=== PATIENT | female | born 1950 | race Caucasian/White ===

== ENCOUNTER 2016-03-21 12:01 | Inpatient (IN) | payer OTHER ==
[~2016-03-21] VITALS: Ht 152.4 cm; Wt 38.6 kg
[~2016-03-21 12:01] MED LIST: ABILIFY10 MG; ABILIFY10 MG PO; ABILIFY2 MG PO; ABILIFY5 MG PO; ACIDOPHILUS LA1 EAC1 PO; ADDERALL XR 1010 MG PO; ADDERALL XR 2020 MG; ADDERALL10 MG PO; ADDERALL20 MG PO; ADDERALL5 MG PO; ADVAIR HFA120 INHALA IH; ALBUTEROL2.5 MG/3 M IH; ASPIR-TRIN325 M1 PO; AZITHROMYCIN500 M1 PO; Adderall PO; Amoxicillin PO; Ascorbic Acid,Ester- PO; BENTYL10 MG PO; BENTYL20 MG PO; BREO ELLIPTA I1 EACH IH; CELEXA40 MG PO; CLONAZEPAM1 MG; CLONAZEPAM1 MG PO; CLONIDINE HCL0.1 MG PO; Celexa PO; DAILY VALUE1 EACH PO; DAILY VITAMIN1 EAC8 PO; DEXAMETHASONE4 MG PO; DEXTROAMP-AMPHE10 MG PO; DOXEPIN HCL25 MG PO; DULCOLAX10 MG PR; DULCOLAX5 MG PO; DuoNeb IH; ENDOCET 5-3251 EACH PO; FIORICET WI1 CAPSULE PO; FISH OIL SOFTG1 EAC2 PO; FLORASTOR250 MG PO; FOLIC ACID1 MG PO; FOSAMAX70 MG PO; HABITROL,NICODE21 MG TD; HARVONI 90-4001 EACH PO; HYDROCODON-ACE1 EAC5 PO; HYDROCODON-ACE1 EAC9 PO; IMODIUM MS REL1 EACH PO; INDERAL10 MG PO; KAYEXALATE15 GM/60 M PO; KLONOPIN0.5 M1 PO; KLONOPIN1 MG PO; KlonoPIN PO; Klonopin PO; LEVAQUIN500 MG PO; LIBRAX, CLI1 CAPSULE PO; LOMOTIL,LONO1 TABLET PO; LOPRESSOR25 MG; LORTAB 5-325 M1 EACH PO; Levaquin PO; Lopressor PO; MAGNESIUM100 MG PO; MEDROL DOSEPAK4 MG PO; METOPROLOL SUC100 MG PO; METOPROLOL SUCC25 MG PO; MOBIC15 MG PO; MULTI VITAMIN1 EACH PO; MULTIVITAMIN1 EAC2 PO; NICOTINE PATCH1 EAC2 TD; NITROSTAT,NITR0.4 M1 SL; NORVASC5 MG PO; OMEPRAZOLE40 M1 PO; OYST-CAL D TAB1 EACH PO; Oscal 500 w/Vitamin PO; Oyst-Cal D, Oscal W/ PO; PANTOPRAZOLE SO40 MG PO; PERCOCET 10/1 TABLET PO; PERCOCET 5/31 TABLET PO; PHENERGAN; PREDNISONE; PREDNISONE5 MG PO; PREDNISONE50 MG PO; PREVACID30 MG PO; PROAIR HFA8.5 GM IH; PROBIOTIC1 EACH; PROPRANOLOL HCL10 MG; PROVENTIL HFA6.7 GM IH; SENOKOT S,PE1 TABLET PO; SPIRIVA1 INHALATI IH; STROMECTOL PO; TEMOVATE 0.05%30 GM TP; THERAGRAN1 TABLET PO; TOPROL XL50 MG PO; TYLENOL WITH C1 EACH PO; Tylenol Regular Stre PO; VITAMIN D; VITAMIN D1000 INTUN PO; VITAMIN D400 UNI2 PO; Wellbutrin SR PO; ZESTRIL20 MG PO; ZITHROMAX Z-PA250 MG PO; ZOFRAN ODT8 MG PO; [UNRECOGNIZED DRUG - OTHER] PO; celeXA PO; oxyCODONE PO; predniSONE PO
[2016-03-21] MEDS ORDERED: LISINOPRIL40 MG PO (13:00)
[2016-03-21] MEDS ORDERED: LISINOPRIL PO (13:01)
[2016-03-21 13:02] LABS: HEMATOCRIT 41.8 % (36.0-46.0); MCH 34.1 PG (29.0-34.0); MCHC 32.1 G/DL (30.0-36.0); MCV 106.4 FL (83-99); MEAN PLAT.VOLUME 9.5 uM^3 (9.5-12.4); PLATELET COUNT 258 K/uL (156-360); RBC DIS.WIDTH-CV 12.6 % (11.8-14.6); RBC DIS.WIDTH-SD 48.4 % (39-53); RED BLOOD COUNT 3.93 M/uL (3.80-5.20); WHITE BLOOD COUNT 7.9 K/uL (4.1-10.2)
[2016-03-21] MEDS ORDERED: CLONAZEPAM0.5 MG PO (13:02)
[2016-03-21 13:17] LABS: CHLORIDE 111 mEq/L (99-109); POTASSIUM 5.3 mEq/L (3.7-5.4); SODIUM 142 mEq/L (136-147)
[2016-03-21 13:18] LABS: GLUCOSE 143 mg/dL (70-99)
[2016-03-21 13:20] LABS: ANION GAP 13 MEQ/L (2-14)
[2016-03-21 13:22] LABS: GFR ESTIMATE (CALCULATED) 25 mL/min/
[2016-03-21 13:23] LABS: TROP-I INTERPRETATION NEGATIVE; TROPONIN-I 0.02 ng/mL (0.0-0.30); UREA NITROGEN (BUN) 30 mg/dL (9-23)
[2016-03-21] MEDS ORDERED: HYDROCODON-ACE1 EAC9 PO (14:03)
[2016-03-21] MEDS ORDERED: KLONOPIN1 MG PO (17:19)
[2016-03-21] MEDS ORDERED: ZESTRIL40 MG PO (17:20)
[2016-03-21] MEDS ORDERED: DOXEPIN HCL25 MG PO (17:21)
[2016-03-21] MEDS ORDERED: BIOFLEX TABLET1 EACH PO (17:24)
[2016-03-21 18:22] VITALS: BP 174/77
[2016-03-21 20:08] VITALS: BP 165/84
[2016-03-22 04:42] VITALS: BP 113/56
[2016-03-22 06:50] LABS: ANION GAP 7 MEQ/L (2-14); CHLORIDE 112 MEQ/L (99-109); GFR ESTIMATE (CALCULATED) 40 mL/min/; GLUCOSE 115 mg/dL (70-99); POTASSIUM 5.1 MEQ/L (3.7-5.4); SAMPLE HEMOLYSIS CHECK 0; SAMPLE ICTERIC CHECK 0; SAMPLE LIPEMIA CHECK 0; SODIUM 143 MEQ/L (136-147); UREA NITROGEN (BUN) 29 mg/dL (9-23)
[2016-03-22 07:59] VITALS: BP 140/64
[2016-03-22 09:26] LABS: ALKALINE PHOSPHATASE 52 IU/L (3-129); DIRECT BILIRUBIN 0.1 mg/dL (0.0-0.3); LIPASE 23 U/L (1.0-51.0); TOTAL BILIRUBIN 0.2 MG/DL (0.0-1.0)
[2016-03-22 12:25] VITALS: BP 131/62
[2016-03-22 15:36] VITALS: BP 164/74
[2016-03-22 20:28] VITALS: BP 165/74
[2016-03-23] VITALS (11 sets, daily range): BP systolic 123–193; BP diastolic 60–98
[2016-03-23 06:27] LABS: ANION GAP 7 MEQ/L (2-14); CHLORIDE 112 MEQ/L (99-109); GFR ESTIMATE (CALCULATED) 59 mL/min/; GLUCOSE 94 mg/dL (70-99); POTASSIUM 5.2 MEQ/L (3.7-5.4); SAMPLE HEMOLYSIS CHECK 0; SAMPLE ICTERIC CHECK 0; SAMPLE LIPEMIA CHECK 0; SODIUM 140 MEQ/L (136-147); UREA NITROGEN (BUN) 22 mg/dL (9-23)
[2016-03-23 06:42] LABS: HEMATOCRIT 34.2 % (36.0-46.0); MCH 33.9 PG (29.0-34.0); MCHC 31.3 G/DL (30.0-36.0); MCV 108.2 FL (83-99); MEAN PLAT.VOLUME 10.1 uM^3 (9.5-12.4); PLATELET COUNT 211 K/uL (156-360); RBC DIS.WIDTH-CV 12.9 % (11.8-14.6); RBC DIS.WIDTH-SD 50.8 % (39-53); RED BLOOD COUNT 3.16 M/uL (3.80-5.20)
[2016-03-23 06:44] LABS: WHITE BLOOD COUNT 5.3 K/uL (4.1-10.2)
[2016-03-23 07:49] LABS: EOSINOPHIL (%) 2.4 % (0-5); EOSINOPHIL COUNT 0.1 K/uL (0-0.3); HEMATOLOGY COMMENT 1 SMEAR COMPATIBLE; LYMPHOCYTE COUNT 1.1 K/uL (1.0-2.8); MONOCYTE COUNT 0.6 K/uL (0-0.8); NEUTROPHIL (%) 64.1 % (45-76); NEUTROPHIL COUNT 3.4 K/uL (1.8-6.4); USER ID CCL
[2016-03-24 04:00] VITALS: BP 112/54
[2016-03-24 08:00] VITALS: BP 139/73
[2016-03-24 12:39] LABS: HEMATOCRIT 40.4 % (36.0-46.0); MCH 34.3 PG (29.0-34.0); MCHC 32.7 G/DL (30.0-36.0); MCV 104.9 FL (83-99); MEAN PLAT.VOLUME 9.7 uM^3 (9.5-12.4); PLATELET COUNT 251 K/uL (156-360); RBC DIS.WIDTH-CV 12.6 % (11.8-14.6); RBC DIS.WIDTH-SD 47.6 % (39-53); WHITE BLOOD COUNT 6.3 K/uL (4.1-10.2)
[2016-03-24 12:40] LABS: RED BLOOD COUNT 3.85 M/uL (3.80-5.20)
[2016-03-24 13:04] LABS: ALKALINE PHOSPHATASE 56 IU/L (3-129); ANION GAP 8 MEQ/L (2-14); CHLORIDE 108 MEQ/L (99-109); GFR ESTIMATE (CALCULATED) 59 mL/min/; GLUCOSE 146 mg/dL (70-99); MAGNESIUM 1.3 mg/dl (1.3-2.7); POTASSIUM 4.9 MEQ/L (3.7-5.4); SAMPLE HEMOLYSIS CHECK 0; SAMPLE ICTERIC CHECK 0; SAMPLE LIPEMIA CHECK 0; SODIUM 139 MEQ/L (136-147); TOTAL BILIRUBIN 0.3 MG/DL (0.0-1.0); UREA NITROGEN (BUN) 19 mg/dL (9-23)
[2016-03-24] MEDS ORDERED: NICOTINE PATCH1 EAC1 TD (14:02)
[2016-03-24] MEDS ORDERED: BENTYL20 MG PO (14:04)
[2016-03-24] MEDS ORDERED: SUCRALFATE1 GM PO (14:04)
== END 2016-03-24 15:27 | disposition home or self-care (01) | DRG 683 ==
LOC: EME 12:01 → EDOF 16:43 → 5WEST 16:43 → EDOF 16:43 → 5WEST 18:06 → 4SOUTH 03-22 09:00 → 2EAST 03-23 17:32
PROVIDERS: Hospitalist; Internal Medicine
DX: N17.9 Acute kidney failure, unspecified (principal); E86.0 Dehydration; S60.222A Contusion of left hand, initial encounter; W19.XXXA Unspecified fall, initial encounter; C34.31 Malignant neoplasm of lower lobe, right bronchus or lung; C34.11 Malignant neoplasm of upper lobe, right bronchus or lung; G89.3 Neoplasm related pain (acute) (chronic); K22.2 Esophageal obstruction; I12.9 Hypertensive chronic kidney disease with stage 1 through stage 4 chronic kidney disease, or unspecified chronic kidney disease; N18.2 Chronic kidney disease, stage 2 (mild); J44.9 Chronic obstructive pulmonary disease, unspecified; K21.9 Gastro-esophageal reflux disease without esophagitis; I25.10 Atherosclerotic heart disease of native coronary artery without angina pectoris; G89.29 Other chronic pain; F17.200 Nicotine dependence, unspecified, uncomplicated; R10.11 Right upper quadrant pain; R10.12 Left upper quadrant pain; I25.2 Old myocardial infarction; Z95.5 Presence of coronary angioplasty implant and graft
CPT/HCPCS: 70450; 71020; 73130; 74000; 74220; 80048; 80053; 80076; 82607; 82746; 83690; 83735; 84484; 85025; 85027; 93005; 93970; 94640; 94640 76; 99202; 99281; 99285; G0378; G8978 GP CH; G8979 GP CH; G8980 GP CH; G8987 GO CH; G8988 GO CH; G8989 GO CH; J0360; J1650; J3475; J7030

== ENCOUNTER 2016-04-02 09:27 | Observation (INO) | payer OTHER ==
[~2016-04-02] VITALS: Ht 152.4 cm; Wt 41.4 kg
[~2016-04-02 09:27] MED LIST changes: +BIOFLEX TABLET1 EACH PO; +CLONAZEPAM0.5 MG PO; +LISINOPRIL PO; +LISINOPRIL40 MG PO; +NICOTINE PATCH1 EAC1 TD; +SUCRALFATE1 GM PO; +ZESTRIL40 MG PO
[2016-04-02 10:14] LABS: HEMATOCRIT 42.5 % (36.0-46.0); MCH 33.6 PG (29.0-34.0); MCHC 32.2 G/DL (30.0-36.0); MCV 104.2 FL (83-99); MEAN PLAT.VOLUME 9.6 uM^3 (9.5-12.4); RBC DIS.WIDTH-CV 12.5 % (11.8-14.6); RBC DIS.WIDTH-SD 47.2 % (39-53); RED BLOOD COUNT 4.08 M/uL (3.80-5.20)
[2016-04-02 10:15] LABS: PLATELET COUNT 331 K/uL (156-360); WHITE BLOOD COUNT 10.8 K/uL (4.1-10.2)
[2016-04-02 10:25] LABS: CHLORIDE 115 mEq/L (99-109); POTASSIUM 4.5 mEq/L (3.7-5.4); SODIUM 141 mEq/L (136-147)
[2016-04-02 10:26] LABS: GLUCOSE 121 mg/dL (70-99)
[2016-04-02 10:28] LABS: ANION GAP 10 MEQ/L (2-14)
[2016-04-02 10:30] LABS: GFR ESTIMATE (CALCULATED) 43 mL/min/
[2016-04-02 10:31] LABS: UREA NITROGEN (BUN) 34 mg/dL (9-23)
[2016-04-02 12:26] LABS: TOTAL BILIRUBIN 0.3 mg/dL (0.0-1.0)
[2016-04-02 12:27] LABS: ALKALINE PHOSPHATASE 71 IU/L (3-129)
[2016-04-02 12:30] LABS: DIRECT BILIRUBIN 0.1 mg/dL (0.0-0.3)
[2016-04-02 12:31] LABS: LIPASE 49 U/L (1.0-51.0)
[2016-04-02 12:40] LABS: ADD MIUA? NO; BILIRUBIN NEGATIVE; BLOOD NEGATIVE; COLOR YELLOW ((YELLOW)); GLUCOSE (STRIP) NEGATIVE; KETONES NEGATIVE; LEUKOCYTES NEGATIVE; NITRITE NEGATIVE; PROTEIN (STRIP) 30; SPECIFIC GRAVITY 1.012 (1.000-1.030); UCUL ADDED? NO; UROBILINOGEN 0.2 MG/DL (0.2-1.0)
[2016-04-02] MEDS ORDERED: KLONOPIN0.5 M1 PO (16:21)
[2016-04-02] MEDS ORDERED: ABILIFY2 MG PO (16:23)
[2016-04-02 22:12] VITALS: BP 165/78
[2016-04-03 01:02] LABS: HEMATOCRIT 32.6 % (36.0-46.0); MCV 107.6 FL (83-99)
[2016-04-03 01:07] VITALS: BP 170/74
[2016-04-03 07:26] VITALS: BP 160/78
[2016-04-03 08:58] LABS: HEMATOCRIT 35.4 % (36.0-46.0); MCV 107.3 FL (83-99)
[2016-04-03] MEDS ORDERED: CLONAZEPAM1 MG PO (09:18)
[2016-04-03 11:39] VITALS: BP 135/70
[2016-04-03 16:32] VITALS: BP 163/74
[2016-04-03 17:20] LABS: HEMATOCRIT 36.2 % (36.0-46.0); MCV 107.1 FL (83-99)
[2016-04-03 21:00] VITALS: BP 168/94
[2016-04-03 22:34] LABS: C DIFF TOXIN NEGATIVE (NEGATIVE)
[2016-04-03 22:39] LABS: PROBE CHECK PASS; SPECIMEN PROCESSING CONTROL PASS
[2016-04-04 00:17] VITALS: BP 159/74
[2016-04-04 00:37] LABS: HEMATOCRIT 33.8 % (36.0-46.0)
[2016-04-04 04:19] VITALS: BP 186/81
[2016-04-04 06:45] LABS: HEMATOCRIT 36.8 % (36.0-46.0); MCH 34.6 PG (29.0-34.0); MCHC 32.9 G/DL (30.0-36.0); MCV 105.1 FL (83-99); PLATELET COUNT 277 K/uL (156-360); RBC DIS.WIDTH-CV 12.9 % (11.8-14.6); RBC DIS.WIDTH-SD 48.9 % (39-53); WHITE BLOOD COUNT 9.4 K/uL (4.1-10.2)
[2016-04-04 07:00] VITALS: BP 188/87
[2016-04-04 07:16] LABS: ANION GAP 7 MEQ/L (2-14); CHLORIDE 112 MEQ/L (99-109); GFR ESTIMATE (CALCULATED) > 59 mL/min/; GLUCOSE 94 mg/dL (70-99); SAMPLE HEMOLYSIS CHECK 0; SAMPLE ICTERIC CHECK 0; SAMPLE LIPEMIA CHECK 0; SODIUM 140 MEQ/L (136-147)
[2016-04-04 07:19] LABS: UREA NITROGEN (BUN) 14 mg/dL (9-23)
[2016-04-04 12:09] VITALS: BP 191/91
[2016-04-04 12:18] VITALS: BP 140/78
== END 2016-04-04 13:19 | disposition home or self-care (01) ==
LOC: EME 09:27 → EDOF 14:53 → 5WEST 14:53 → EDOF 16:42 → 5WEST 19:40
PROVIDERS: Emergency Medicine; Hospitalist; Internal Medicine Gastroenterology; Nurse Practitioner Family
DX: K62.5 Hemorrhage of anus and rectum (principal); K55.9 Vascular disorder of intestine, unspecified; D12.5 Benign neoplasm of sigmoid colon; K22.70 Barrett's esophagus without dysplasia; K22.2 Esophageal obstruction; K64.8 Other hemorrhoids; D53.9 Nutritional anemia, unspecified; K21.9 Gastro-esophageal reflux disease without esophagitis; R10.11 Right upper quadrant pain; R13.10 Dysphagia, unspecified; R10.30 Lower abdominal pain, unspecified; I10 Essential (primary) hypertension; Z85.118 Personal history of other malignant neoplasm of bronchus and lung; Z92.21 Personal history of antineoplastic chemotherapy; Z92.3 Personal history of irradiation; J44.9 Chronic obstructive pulmonary disease, unspecified; I25.10 Atherosclerotic heart disease of native coronary artery without angina pectoris; Z95.1 Presence of aortocoronary bypass graft; Z87.11 Personal history of peptic ulcer disease; Z96.653 Presence of artificial knee joint, bilateral; F17.200 Nicotine dependence, unspecified, uncomplicated; Z87.898 Personal history of other specified conditions; Z82.49 Family history of ischemic heart disease and other diseases of the circulatory system
CPT/HCPCS: 74020; 74176; 80048; 80069; 80076; 81003; 83690; 85014; 85018; 85027; 86850; 86900; 86901; 87046; 87177; 87493; 87506; 88305; 88342 TC; 93005; 94640; 99202; 99281; 99284; C9113; G0378; J1200; J2250; J2270; J2405; J3010; J7030

== ENCOUNTER 2016-09-19 12:38 | Inpatient (IN) | payer OTHER ==
[~2016-09-19] VITALS: Ht 152.4 cm; Wt 47.8 kg
[~2016-09-19 12:38] MED LIST changes: +DOXEPIN HCL75 MG PO
[2016-09-19 14:04] LABS: HEMATOCRIT 41.5 % (36.0-46.0); MCH 33.5 PG (29.0-34.0); MCHC 31.8 G/DL (30.0-36.0); MCV 105.3 FL (83-99); PLATELET COUNT 282 K/uL (156-360); RBC DIS.WIDTH-CV 12.6 % (11.8-14.6); RBC DIS.WIDTH-SD 49.4 % (39-53); RED BLOOD COUNT 3.94 M/uL (3.80-5.20); WHITE BLOOD COUNT 7.8 K/uL (4.1-10.2)
[2016-09-19 14:15] LABS: CHLORIDE 103 mEq/L (99-109); POTASSIUM 5.2 mEq/L (3.7-5.4); SODIUM 138 mEq/L (136-147)
[2016-09-19 14:17] LABS: GLUCOSE 98 mg/dL (70-99)
[2016-09-19 14:18] LABS: ANION GAP 8 MEQ/L (2-14)
[2016-09-19 14:19] LABS: TOTAL BILIRUBIN 0.4 mg/dL (0.0-1.0)
[2016-09-19 14:21] LABS: ALKALINE PHOSPHATASE 87 IU/L (3-129); GFR ESTIMATE (CALCULATED) 52 mL/min/
[2016-09-19 14:22] LABS: UREA NITROGEN (BUN) 23 mg/dL (9-23)
[2016-09-19 14:23] LABS: DIRECT BILIRUBIN 0.2 mg/dL (0.0-0.3)
[2016-09-19 14:24] LABS: LIPASE 33 U/L (1.0-51.0)
[2016-09-19 14:32] LABS: TROP-I INTERPRETATION NEGATIVE; TROPONIN-I < 0.01 ng/mL (0.0-0.30)
[2016-09-19 14:37] LABS: ADD MIUA? YES; BILIRUBIN NEGATIVE; BLOOD NEGATIVE; COLOR STRAW ((YELLOW)); GLUCOSE (STRIP) NEGATIVE; KETONES NEGATIVE; LEUKOCYTES SMALL; NITRITE NEGATIVE; PROTEIN (STRIP) 30; SPECIFIC GRAVITY 1.008 (1.000-1.030); UROBILINOGEN 0.2 MG/DL (0.2-1.0)
[2016-09-19 14:48] LABS: BACTERIA RARE /HPF; EPITHELIAL CELLS RARE /HPF; MUCUS TRACE /LPF; RED BLOOD CELLS 0-5 /HPF (0-5); WHITE BLOOD CELLS 15-20 /HPF (0-5); WHITE BLOOD CELLS CLUMP RARE /HPF (0-5)
[2016-09-19] MEDS ORDERED: SPIRIVA1 INHALATI IH (18:00)
[2016-09-19] MEDS ORDERED: METOPROLOL SUC200 MG PO (18:03)
[2016-09-19] MEDS ORDERED: SERTRALINE HCL50 MG PO (18:05)
[2016-09-19] MEDS ORDERED: NICOTINE PATCH1 EAC2 TD (18:06)
[2016-09-19] MEDS ORDERED: SUCRALFATE1 GM PO (18:06)
[2016-09-19] MEDS ORDERED: MULTIVITAMIN1 EAC2 PO (18:07)
[2016-09-19] MEDS ORDERED: ASCORBIC ACID250 MG PO (18:08)
[2016-09-19] MEDS ORDERED: VITAMIN D400 UNIT PO (18:08)
[2016-09-19] MEDS ORDERED: GLUCOSAMINE CH1 EAC2 PO (18:10)
[2016-09-19 19:21] VITALS: BP 170/88
[2016-09-19 20:55] LABS: TROP-I INTERPRETATION NEGATIVE; TROPONIN-I 0.02 ng/mL (0.0-0.30)
[2016-09-20 03:00] VITALS: BP 127/59
[2016-09-20 03:50] LABS: HEMATOCRIT 39.2 % (36.0-46.0); MCH 33.8 PG (29.0-34.0); MCHC 32.1 G/DL (30.0-36.0); MCV 105.1 FL (83-99); MEAN PLAT.VOLUME 9.3 uM^3 (9.5-12.4); PLATELET COUNT 284 K/uL (156-360); RBC DIS.WIDTH-CV 12.5 % (11.8-14.6); RBC DIS.WIDTH-SD 48.8 % (39-53); RED BLOOD COUNT 3.73 M/uL (3.80-5.20)
[2016-09-20 04:11] LABS: TROP-I INTERPRETATION NEGATIVE; TROPONIN-I < 0.01 ng/mL (0.0-0.30)
[2016-09-20 04:20] LABS: CHLORIDE 106 mEq/L (99-109); POTASSIUM 4.9 mEq/L (3.7-5.4); SODIUM 142 mEq/L (136-147)
[2016-09-20 04:23] LABS: ANION GAP 11 MEQ/L (2-14)
[2016-09-20 04:25] LABS: ALKALINE PHOSPHATASE 85 IU/L (3-129)
[2016-09-20 04:26] LABS: GFR ESTIMATE (CALCULATED) 47 mL/min/
[2016-09-20 04:27] LABS: UREA NITROGEN (BUN) 29 mg/dL (9-23)
[2016-09-20 04:38] LABS: GLUCOSE 154 mg/dL (70-99); TOTAL BILIRUBIN 0.3 mg/dL (0.0-1.0)
[2016-09-20 09:00] VITALS: BP 177/82
[2016-09-20 12:14] VITALS: BP 182/82
[2016-09-20 19:30] VITALS: BP 163/74
[2016-09-20 23:27] VITALS: BP 184/87
[2016-09-21 03:46] VITALS: BP 169/84
[2016-09-21 08:06] VITALS: BP 130/69
[2016-09-21 12:14] VITALS: BP 175/79
[2016-09-21 15:06] VITALS: BP 132/79
[2016-09-21] MEDS ORDERED: NORVASC5 MG PO (15:24)
[2016-09-21] MEDS ORDERED: PREDNISONE20 MG PO (15:25)
[2016-09-21] MEDS ORDERED: PANTOPRAZOLE SO40 MG PO (15:25)
== END 2016-09-21 16:32 | disposition home or self-care (01) | DRG 190 ==
LOC: EME 12:38 → EDOF 18:39 → ENRESERV 18:41 → 5WEST 19:14 → 5SOUTH 09-20 10:30 → ENRESERV 09-20 10:33 → 5SOUTH 09-20 16:02
PROVIDERS: Internal Medicine; Physician Assistant
DX: J44.1 Chronic obstructive pulmonary disease with (acute) exacerbation (principal); J18.9 Pneumonia, unspecified organism; K56.7 Ileus, unspecified; C34.31 Malignant neoplasm of lower lobe, right bronchus or lung; K22.2 Esophageal obstruction; D71 Functional disorders of polymorphonuclear neutrophils; G62.9 Polyneuropathy, unspecified; E86.0 Dehydration; F17.210 Nicotine dependence, cigarettes, uncomplicated; F31.9 Bipolar disorder, unspecified; K58.9 Irritable bowel syndrome, unspecified; I25.2 Old myocardial infarction; I12.9 Hypertensive chronic kidney disease with stage 1 through stage 4 chronic kidney disease, or unspecified chronic kidney disease; M81.0 Age-related osteoporosis without current pathological fracture; N18.9 Chronic kidney disease, unspecified; F41.9 Anxiety disorder, unspecified; I25.119 Atherosclerotic heart disease of native coronary artery with unspecified angina pectoris; K21.0 Gastro-esophageal reflux disease with esophagitis; K22.710 Barrett's esophagus with low grade dysplasia; K27.9 Peptic ulcer, site unspecified, unspecified as acute or chronic, without hemorrhage or perforation; R09.02 Hypoxemia; R13.12 Dysphagia, oropharyngeal phase; Z79.899 Other long term (current) drug therapy; Z85.118 Personal history of other malignant neoplasm of bronchus and lung; Z90.49 Acquired absence of other specified parts of digestive tract; Z91.14 Patient's other noncompliance with medication regimen; Z91.19 Patient's noncompliance with other medical treatment and regimen; Z92.21 Personal history of antineoplastic chemotherapy; Z92.3 Personal history of irradiation; Z95.5 Presence of coronary angioplasty implant and graft; Z96.653 Presence of artificial knee joint, bilateral
CPT/HCPCS: 71020; 74177; 80048; 80053; 80076; 81003; 83690; 84484; 85027; 85379; 93005; 93925; 94640; 94640 76; 94799; 99202; 99281; 99285; C9113; G0378; J0360; J1644; J1885; J2270; J2930; J7040

== ENCOUNTER 2016-10-20 10:59 | Emergency (ER) | payer OTHER ==
[~2016-10-20] VITALS: Ht 152.4 cm; Wt 47.5 kg
[~2016-10-20 10:59] MED LIST changes: +ASCORBIC ACID250 MG PO; +GLUCOSAMINE CH1 EAC2 PO; +METOPROLOL SUC200 MG PO; +PREDNISONE20 MG PO; +SERTRALINE HCL50 MG PO; +VITAMIN D400 UNIT PO
[2016-10-20 12:43] LABS: BASOPHIL COUNT 0.1 K/uL (0-0.1); EOSINOPHIL (%) 1.8 % (0-5); EOSINOPHIL COUNT 0.1 K/uL (0-0.3); HEMATOCRIT 36.2 % (36.0-46.0); IMMATURE GRANULOCYTE (%) 0.3 % (0.0-0.7); INSTRUMENT ABS NEUTROPHIL CT 5.8 K/uL; LYMPHOCYTE COUNT 1.2 K/uL (1.0-2.8); MCH 33.1 PG (29.0-34.0); MCHC 32.6 G/DL (30.0-36.0); MCV 101.7 FL (83-99); MEAN PLAT.VOLUME 8.9 uM^3 (9.5-12.4); MONOCYTE (%) 9.6 % (3-12); MONOCYTE COUNT 0.8 K/uL (0-0.8); NEUTROPHIL (%) 72.9 % (45-76); NEUTROPHIL COUNT 5.8 K/uL (1.8-6.4); PLATELET COUNT 245 K/uL (156-360); RBC DIS.WIDTH-CV 11.9 % (11.8-14.6); RBC DIS.WIDTH-SD 45.1 % (39-53); RED BLOOD COUNT 3.56 M/uL (3.80-5.20); WHITE BLOOD COUNT 7.9 K/uL (4.1-10.2)
[2016-10-20 12:50] LABS: CHLORIDE 111 mEq/L (99-109); POTASSIUM 4.5 mEq/L (3.7-5.4); SODIUM 143 mEq/L (136-147)
[2016-10-20 12:52] LABS: GLUCOSE 89 mg/dL (70-99)
[2016-10-20 12:53] LABS: ANION GAP 9 MEQ/L (2-14)
[2016-10-20 12:56] LABS: GFR ESTIMATE (CALCULATED) 52 mL/min/
[2016-10-20 12:57] LABS: UREA NITROGEN (BUN) 18 mg/dL (9-23)
[2016-10-20] MEDS ORDERED: PERCOCET 5/31 TABLET PO (16:23)
[2016-10-20 16:35] VITALS: BP 162/84
== END 2016-10-20 16:41 | disposition home or self-care (01) ==
LOC: EME 10:59
PROVIDERS: Emergency Medicine
DX: R07.89 Other chest pain (principal); M54.5 Low back pain; R21 Rash and other nonspecific skin eruption; R22.0 Localized swelling, mass and lump, head; I12.9 Hypertensive chronic kidney disease with stage 1 through stage 4 chronic kidney disease, or unspecified chronic kidney disease; N18.9 Chronic kidney disease, unspecified; J44.9 Chronic obstructive pulmonary disease, unspecified; Z85.118 Personal history of other malignant neoplasm of bronchus and lung; Z92.21 Personal history of antineoplastic chemotherapy; Z92.3 Personal history of irradiation; Z87.891 Personal history of nicotine dependence
CPT/HCPCS: 71250; 80048; 85025; 93005; 99281; 99284; J3010

== ENCOUNTER → 2016-11-13 | Outpatient (CLI) | payer OTHER ==
[~2016-11-13] VITALS: Ht 154.9 cm; Wt 45.4 kg
[~2016-11-13] MED LIST changes: +CALCIUM500 M4 PO; -DOXEPIN HCL75 MG PO; +OXAYDO5 MG PO; +PROTONIX40 MG PO; +SINEQUAN75 MG PO; +TOPROL XL200 MG PO; +VENTOLIN HFA18 GM IH; +ZOLOFT50 MG PO
[2016-11-13 09:23] LABS: PROTHROMBIN TIME 11.2 SEC (10.2-12.9)
[2016-11-13 09:25] LABS: PTT 28.3 SEC (25-37)
== END | disposition home or self-care (01) ==
LOC: OPR 08:29 → EDSTATUS 09:00
PROVIDERS: Internal Medicine Hematology & Oncology
PROC: 0BBJ3ZX Excision of Left Lower Lung Lobe, Percutaneous Approach, Diagnostic (ICD-10-PCS; principal; 2016-11-13)
DX: C34.32 Malignant neoplasm of lower lobe, left bronchus or lung (principal); Z87.891 Personal history of nicotine dependence; J44.9 Chronic obstructive pulmonary disease, unspecified; G89.3 Neoplasm related pain (acute) (chronic); M54.5 Low back pain; R10.84 Generalized abdominal pain; Z79.891 Long term (current) use of opiate analgesic; R11.0 Nausea; I25.10 Atherosclerotic heart disease of native coronary artery without angina pectoris; B18.2 Chronic viral hepatitis C; K59.09 Other constipation; F32.9 Major depressive disorder, single episode, unspecified; K21.9 Gastro-esophageal reflux disease without esophagitis; I10 Essential (primary) hypertension; Z92.21 Personal history of antineoplastic chemotherapy; Z88.6 Allergy status to analgesic agent; Z88.8 Allergy status to other drugs, medicaments and biological substances
CPT/HCPCS: 71010; 77012; 85610; 85730; 88305; 88341 TC; 88342 TC; J3010

== ENCOUNTER 2016-12-30 06:59 | Day surgery (SDC) | payer OTHER ==
[~2016-12-30] VITALS: Ht 152.4 cm; Wt 48.0 kg
[2016-12-30] MEDS ORDERED: ABILIFY10 MG PO (07:34)
== END 2016-12-30 10:34 | disposition home or self-care (01) ==
LOC: CATH 06:59
DX: I87.8 Other specified disorders of veins (principal); C34.90 Malignant neoplasm of unspecified part of unspecified bronchus or lung; I10 Essential (primary) hypertension; J44.9 Chronic obstructive pulmonary disease, unspecified
CPT/HCPCS: C1752; C1894; J0690; J1644; J2250; J3010; S0020

== ENCOUNTER 2017-03-02 09:45 | Inpatient (IN) | payer OTHER ==
[~2017-03-02] VITALS: Ht 152.4 cm; Wt 47.6 kg
[~2017-03-02 09:45] MED LIST changes: +DURAGESIC50 MCG TD; +SINEQUAN25 MG PO; -SINEQUAN75 MG PO
[2017-03-02 11:22] LABS: BASOPHIL (%) 0.5 % (0-1); EOSINOPHIL (%) 2.6 % (0-5); EOSINOPHIL COUNT 0.2 K/uL (0-0.3); HEMATOCRIT 44.8 % (36.0-46.0); HEMOGLOBIN 14.3 G/DL (11.9-15.5); IMMATURE GRANULOCYTE (%) 0.3 % (0.0-0.7); LYMPHOCYTE (%) 16.5 % (15-42); MCH 33.3 PG (29.0-34.0); MCHC 31.9 G/DL (30.0-36.0); MCV 104.2 FL (83-99); MONOCYTE (%) 8.7 % (3-12); MONOCYTE COUNT 0.5 K/uL (0-0.8); NEUTROPHIL (%) 71.4 % (45-76); NEUTROPHIL COUNT 4.3 K/uL (1.8-6.4); PLATELET COUNT 251 K/uL (156-360); RBC DIS.WIDTH-CV 14.1 % (11.8-14.6); RBC DIS.WIDTH-SD 54.1 % (39-53); WHITE BLOOD COUNT 6.1 K/uL (4.1-10.2)
[2017-03-02 11:39] LABS: CHLORIDE 109 mEq/L (99-109); SODIUM 136 mEq/L (136-147)
[2017-03-02 11:41] LABS: GLUCOSE 100 mg/dL (70-99)
[2017-03-02 11:45] LABS: CREATININE 1.1 mg/dL (0.6-1.3); GFR ESTIMATE (CALCULATED) 52 mL/min/
[2017-03-02 11:46] LABS: UREA NITROGEN (BUN) 17 mg/dL (9-23)
[2017-03-02 11:59] LABS: POTASSIUM 5.6 mEq/L (3.7-5.4)
[2017-03-02] MEDS ORDERED: GLUCOSAMINE1000 MG PO (16:15)
[2017-03-02 16:16] LABS: PTT 35.4 SEC (25-37)
[2017-03-02] MEDS ORDERED: LISINOPRIL40 MG PO (16:28)
[2017-03-02 18:32] VITALS: BP 152/83
[2017-03-02 19:38] VITALS: BP 181/78
[2017-03-03] VITALS (7 sets, daily range): BP systolic 106–160; BP diastolic 52–74
[2017-03-03 07:12] LABS: HEMATOCRIT 40.5 % (36.0-46.0); HEMOGLOBIN 12.6 G/DL (11.9-15.5); MCH 33.3 PG (29.0-34.0); MCHC 31.1 G/DL (30.0-36.0); MCV 107.1 FL (83-99); PLATELET COUNT 276 K/uL (156-360); RBC DIS.WIDTH-SD 54.8 % (39-53); RED BLOOD COUNT 3.78 M/uL (3.80-5.20); WHITE BLOOD COUNT 6.2 K/uL (4.1-10.2)
[2017-03-03 07:36] LABS: ALBUMIN 3.8 G/DL (3.2-4.8); ALKALINE PHOSPHATASE 60 IU/L (3-129); ALT (GPT) 10 IU/L (3-49); AST (GOT) 20 IU/L (2-34); CHLORIDE 105 MEQ/L (99-109); CREATININE 1.2 MG/DL (0.6-1.3); GFR ESTIMATE (CALCULATED) 47 mL/min/; GLUCOSE 117 mg/dL (70-99); HDL CHOLESTEROL 47 MG/DL (Desirable>=50); LDL CHOLESTEROL 67 mg/dL (Desirable<100); NON-HDL CHOLESTEROL 119 mg/dL (Desirable<160); POTASSIUM 5.1 MEQ/L (3.7-5.4); SODIUM 141 MEQ/L (136-147); TOTAL BILIRUBIN 0.4 MG/DL (0.0-1.0); TOTAL CHOLESTEROL 166 mg/dL (Desirable<200); TOTAL PROTEIN 6.3 G/DL (6.4-8.3); TRIGLYCERIDES 260 MG/DL (Normal: <150); UREA NITROGEN (BUN) 22 mg/dL (9-23)
[2017-03-04 03:37] VITALS: BP 113/54
[2017-03-04 07:38] VITALS: BP 97/55
[2017-03-04 12:06] VITALS: BP 141/60
[2017-03-04 15:33] VITALS: BP 96/55
[2017-03-04 20:07] VITALS: BP 93/50
[2017-03-04 23:33] VITALS: BP 106/50
[2017-03-05 04:31] VITALS: BP 103/50
[2017-03-05 08:09] VITALS: BP 130/63
[2017-03-05 11:55] VITALS: BP 124/58
[2017-03-05] MEDS ORDERED: NICOTINE PATCH1 EAC2 TD (12:06)
[2017-03-05] MEDS ORDERED: ATORVASTATIN CA80 MG PO (12:07)
[2017-03-05] MEDS ORDERED: CLOPIDOGREL75 MG PO (12:07)
[2017-03-05] MEDS ORDERED: METOPROLOL SUCC50 MG PO (12:08)
[2017-03-05] MEDS ORDERED: FLONASE16 G1 BOTH NARES (12:09)
[2017-03-05] MEDS ORDERED: OXYCODONE-APAP1 EACH PO (15:48)
== END 2017-03-05 17:29 | disposition home health service (06) | DRG 65 ==
LOC: EME 09:45 → EDOF 15:40 → 5SOUTH 15:40 → CANRESERV 15:42 → ENRESERV 15:42 → 5SOUTH 18:02
PROVIDERS: Emergency Medicine; Internal Medicine
DX: I63.112 Cerebral infarction due to embolism of left vertebral artery (principal); C78.00 Secondary malignant neoplasm of unspecified lung; E87.5 Hyperkalemia; I12.9 Hypertensive chronic kidney disease with stage 1 through stage 4 chronic kidney disease, or unspecified chronic kidney disease; N18.9 Chronic kidney disease, unspecified; J44.9 Chronic obstructive pulmonary disease, unspecified; G43.909 Migraine, unspecified, not intractable, without status migrainosus; G44.209 Tension-type headache, unspecified, not intractable; I25.10 Atherosclerotic heart disease of native coronary artery without angina pectoris; K21.9 Gastro-esophageal reflux disease without esophagitis; K58.9 Irritable bowel syndrome, unspecified; M16.10 Unilateral primary osteoarthritis, unspecified hip; E78.5 Hyperlipidemia, unspecified; G89.29 Other chronic pain; M81.0 Age-related osteoporosis without current pathological fracture; F31.9 Bipolar disorder, unspecified; I25.2 Old myocardial infarction; F17.210 Nicotine dependence, cigarettes, uncomplicated; Z99.81 Dependence on supplemental oxygen; Z79.02 Long term (current) use of antithrombotics/antiplatelets; Z87.11 Personal history of peptic ulcer disease; Z82.49 Family history of ischemic heart disease and other diseases of the circulatory system; Z85.118 Personal history of other malignant neoplasm of bronchus and lung; Z87.442 Personal history of urinary calculi; Z92.21 Personal history of antineoplastic chemotherapy; Z92.3 Personal history of irradiation
CPT/HCPCS: 70450; 70496; 70498; 70553; 71046; 80048; 80053; 80061; 83036; 84999; 85025; 85027; 85610; 85730; 93005; 93306; 93880; 94640; 94640 76; 94799; 99202; 99281; 99285; G0378; J1650; J2270; J7030

== ENCOUNTER 2017-05-09 10:25 | Inpatient (IN) | payer OTHER ==
[~2017-05-09] VITALS: Ht 152.4 cm; Wt 51.4 kg
[~2017-05-09 10:25] MED LIST changes: +ATORVASTATIN CA80 MG PO; +CLOPIDOGREL75 MG PO; +FLONASE16 G1 BOTH NARES; +GLUCOSAMINE1000 MG PO; +METOPROLOL SUCC50 MG PO; +OXYCODONE-APAP1 EACH PO
[2017-05-09 11:47] LABS: HEMATOCRIT 34.1 % (36.0-46.0); HEMOGLOBIN 11.5 G/DL (11.9-15.5); MCH 34.3 PG (29.0-34.0); MCHC 33.7 G/DL (30.0-36.0); PLATELET COUNT 317 K/uL (156-360); RBC DIS.WIDTH-CV 13.5 % (11.8-14.6); RBC DIS.WIDTH-SD 50.5 % (39-53); RED BLOOD COUNT 3.35 M/uL (3.80-5.20); WHITE BLOOD COUNT 8.3 K/uL (4.1-10.2)
[2017-05-09 11:48] LABS: INTER. NORMALIZED RATIO 1.1
[2017-05-09 11:50] LABS: PTT 38.8 SEC (25-37)
[2017-05-09 11:51] LABS: MCV 101.8 FL (83-99)
[2017-05-09 11:57] LABS: ALBUMIN 4.4 g/dL (3.2-4.8); CHLORIDE 106 mEq/L (99-109); POTASSIUM 4.2 mEq/L (3.7-5.4); SODIUM 140 mEq/L (136-147)
[2017-05-09 12:00] LABS: GLUCOSE 125 mg/dL (70-99); TOTAL PROTEIN 7.6 g/dL (6.4-8.3)
[2017-05-09 12:01] LABS: TOTAL BILIRUBIN 0.5 mg/dL (0.0-1.0)
[2017-05-09 12:03] LABS: ALKALINE PHOSPHATASE 74 IU/L (3-129); CREATININE 1.8 mg/dL (0.6-1.3); GFR ESTIMATE (CALCULATED) 30 mL/min/
[2017-05-09 12:04] LABS: TROP-I INTERPRETATION NEGATIVE; TROPONIN-I 0.04 ng/mL (0.0-0.30); UREA NITROGEN (BUN) 26 mg/dL (9-23)
[2017-05-09 12:05] LABS: AST (GOT) 27 IU/L (2-34)
[2017-05-09 12:41] LABS: ALT (GPT) 16 IU/L (3-49)
[2017-05-09] MEDS ORDERED: KLONOPIN0.5 M1 PO (16:50)
[2017-05-09] MEDS ORDERED: MYCOSTATIN 100,60 ML PO (16:52)
[2017-05-09] MEDS ORDERED: DOXEPIN HCL75 MG PO (16:53)
[2017-05-09] MEDS ORDERED: HYDROCODON-ACE1 EAC9 PO (16:55)
[2017-05-09] MEDS ORDERED: VITAMIN B12-FO1 EACH PO (16:57)
[2017-05-09 17:04] LABS: TROP-I INTERPRETATION NEGATIVE; TROPONIN-I 0.06 ng/mL (0.0-0.30)
[2017-05-09] MEDS ORDERED: PLAVIX75 MG PO (17:18)
[2017-05-09] MEDS ORDERED: FLONASE16 G1 BOTH NARES (17:19)
[2017-05-09] MEDS ORDERED: METOPROLOL SUCC50 MG PO (17:20)
[2017-05-09] MEDS ORDERED: NICOTINE PATCH1 EAC2 TD (17:21)
[2017-05-09] MEDS ORDERED: SERTRALINE HCL50 MG PO (17:24)
[2017-05-09] MEDS ORDERED: ARIPIPRAZOLE5 MG PO (17:25)
[2017-05-09] MEDS ORDERED: ALBUTEROL2.5 MG/3 M IH (17:26)
[2017-05-09 18:35] VITALS: BP 135/88
[2017-05-09 21:06] LABS: APPEARANCE SL.HAZY ((CLEAR)); BILIRUBIN NEGATIVE; BLOOD MODERATE; COLOR YELLOW ((YELLOW)); GLUCOSE (STRIP) NEGATIVE; KETONES NEGATIVE; LEUKOCYTES SMALL; NITRITE NEGATIVE; PROTEIN (STRIP) NEGATIVE; UROBILINOGEN 0.2 MG/DL (0.2-1.0)
[2017-05-09 21:25] LABS: BACTERIA RARE /HPF; EPITHELIAL CELLS RARE /HPF; MUCUS TRACE /LPF; RED BLOOD CELLS 0-5 /HPF (0-5)
[2017-05-09 21:29] LABS: TROP-I INTERPRETATION NEGATIVE; TROPONIN-I 0.09 ng/mL (0.0-0.30)
[2017-05-09 23:57] VITALS: BP 110/58
[2017-05-10 04:58] VITALS: BP 127/61
[2017-05-10 08:05] VITALS: BP 121/58
[2017-05-10 08:11] LABS: HEMATOCRIT 27.8 % (36.0-46.0); MCHC 30.9 G/DL (30.0-36.0); PLATELET COUNT 254 K/uL (156-360); RBC DIS.WIDTH-SD 54.8 % (39-53); WHITE BLOOD COUNT 3.6 K/uL (4.1-10.2)
[2017-05-10 08:12] LABS: HEMOGLOBIN 8.6 G/DL (11.9-15.5); MCV 106.5 FL (83-99); RED BLOOD COUNT 2.61 M/uL (3.80-5.20)
[2017-05-10 08:21] LABS: TROP-I INTERPRETATION NEGATIVE; TROPONIN-I 0.07 ng/mL (0.0-0.30)
[2017-05-10 08:32] LABS: CHLORIDE 116 MEQ/L (99-109); GLUCOSE 113 mg/dL (70-99); POTASSIUM 4.4 MEQ/L (3.7-5.4); SODIUM 142 MEQ/L (136-147); UREA NITROGEN (BUN) 14 mg/dL (9-23)
[2017-05-10 08:40] LABS: GFR ESTIMATE (CALCULATED) 58 mL/min/
[2017-05-10 12:11] VITALS: BP 107/55
[2017-05-10 13:52] LABS: C DIFF TOXIN POSITIVE (NEGATIVE)
[2017-05-10 16:34] VITALS: BP 107/51
[2017-05-10 19:25] VITALS: BP 106/52
[2017-05-10 23:22] VITALS: BP 109/53
[2017-05-11 02:39] VITALS: BP 107/52
[2017-05-11 07:08] LABS: HEMOGLOBIN 9.4 G/DL (11.9-15.5); MCH 33.9 PG (29.0-34.0); MCHC 31.3 G/DL (30.0-36.0); MCV 108.3 FL (83-99); PLATELET COUNT 261 K/uL (156-360); RBC DIS.WIDTH-SD 55.2 % (39-53); RED BLOOD COUNT 2.77 M/uL (3.80-5.20); WHITE BLOOD COUNT 3.9 K/uL (4.1-10.2)
[2017-05-11 08:32] VITALS: BP 104/51
[2017-05-11] MEDS ORDERED: PANTOPRAZOLE SO40 MG PO (11:27)
[2017-05-11] MEDS ORDERED: MYCOSTATIN 100,60 ML PO (11:27)
[2017-05-11] MEDS ORDERED: VANCOMYCIN125 MG/2.5 PO (11:27)
[2017-05-11] MEDS ORDERED: RANITIDINE HCL150 MG PO (11:32)
[2017-05-11 11:57] VITALS: BP 126/59
[2017-05-11] MEDS ORDERED: VANCOMYCIN HCL125 MG PO (12:41)
== END 2017-05-11 15:38 | disposition home or self-care (01) | DRG 372 ==
LOC: EME 10:25 → EDOF 15:26 → ENRESERV 15:29 → 5EAST 18:02
PROVIDERS: Emergency Medicine; Hospitalist; Internal Medicine
DX: A04.72 Enterocolitis due to Clostridium difficile, not specified as recurrent (principal); N17.9 Acute kidney failure, unspecified; E86.0 Dehydration; E86.1 Hypovolemia; I95.1 Orthostatic hypotension; A08.4 Viral intestinal infection, unspecified; C34.92 Malignant neoplasm of unspecified part of left bronchus or lung; D64.81 Anemia due to antineoplastic chemotherapy; T45.1X5A Adverse effect of antineoplastic and immunosuppressive drugs, initial encounter; I12.9 Hypertensive chronic kidney disease with stage 1 through stage 4 chronic kidney disease, or unspecified chronic kidney disease; N18.9 Chronic kidney disease, unspecified; I25.10 Atherosclerotic heart disease of native coronary artery without angina pectoris; J44.9 Chronic obstructive pulmonary disease, unspecified; E78.5 Hyperlipidemia, unspecified; K21.9 Gastro-esophageal reflux disease without esophagitis; F31.9 Bipolar disorder, unspecified; G89.29 Other chronic pain; F17.210 Nicotine dependence, cigarettes, uncomplicated; I25.2 Old myocardial infarction; Z85.118 Personal history of other malignant neoplasm of bronchus and lung; Z87.11 Personal history of peptic ulcer disease; Z87.442 Personal history of urinary calculi; Z92.21 Personal history of antineoplastic chemotherapy; Z79.02 Long term (current) use of antithrombotics/antiplatelets
CPT/HCPCS: 71275; 74177; 80048; 80053; 81003; 82164 90; 83605; 84484; 85027; 85610; 85730; 87040; 87493; 93005; 93971; 94640; 94640 76; 99202; 99281; 99285; C9113; G0378; G8978 GP CH; G8979 GP CH; G8980 GP CH; J1170; J2270; J2405; J7030; J7050; J7120; S0028

== ENCOUNTER 2017-05-23 12:50 | Observation (INO) | payer OTHER ==
[~2017-05-23] VITALS: Ht 152.4 cm; Wt 49.7 kg
[~2017-05-23 12:50] MED LIST changes: +ARIPIPRAZOLE5 MG PO; +DOXEPIN HCL75 MG PO; +MYCOSTATIN 100,60 ML PO; +PLAVIX75 MG PO; +RANITIDINE HCL150 MG PO; +VANCOMYCIN HCL125 MG PO; +VANCOMYCIN125 MG/2.5 PO; +VITAMIN B12-FO1 EACH PO
[2017-05-23 14:13] LABS: HEMATOCRIT 35.2 % (36.0-46.0); MCH 34.2 PG (29.0-34.0); MCV 103.8 FL (83-99); PLATELET COUNT 322 K/uL (156-360); RBC DIS.WIDTH-CV 14.2 % (11.8-14.6); RBC DIS.WIDTH-SD 54.1 % (39-53); RED BLOOD COUNT 3.39 M/uL (3.80-5.20); WHITE BLOOD COUNT 6.1 K/uL (4.1-10.2)
[2017-05-23 14:14] LABS: HEMOGLOBIN 11.6 G/DL (11.9-15.5)
[2017-05-23 14:18] LABS: CHLORIDE 106 mEq/L (99-109); SODIUM 141 mEq/L (136-147)
[2017-05-23 14:19] LABS: GLUCOSE 128 mg/dL (70-99)
[2017-05-23 14:23] LABS: CREATININE 1.7 mg/dL (0.6-1.3); GFR ESTIMATE (CALCULATED) 32 mL/min/
[2017-05-23 14:24] LABS: UREA NITROGEN (BUN) 28 mg/dL (9-23)
[2017-05-23 14:51] LABS: TROP-I INTERPRETATION NEGATIVE; TROPONIN-I < 0.01 ng/mL (0.0-0.30)
[2017-05-23] MEDS ORDERED: CLONAZEPAM0.5 MG PO (17:05)
[2017-05-23] MEDS ORDERED: OXYCODONE-APAP1 EACH PO (17:06)
[2017-05-23] MEDS ORDERED: SERTRALINE HCL50 MG PO (17:07)
[2017-05-23] MEDS ORDERED: ARIPIPRAZOLE5 MG PO (17:07)
[2017-05-23] MEDS ORDERED: COMPAZINE10 MG PO (17:08)
[2017-05-23] MEDS ORDERED: GABAPENTIN100 MG PO (17:08)
[2017-05-23] MEDS ORDERED: ATORVASTATIN CA80 MG PO (17:09)
[2017-05-23] MEDS ORDERED: CENTRUM SILVER1 EAC4 PO (17:13)
[2017-05-23 20:09] VITALS: BP 147/68
[2017-05-23 22:45] LABS: TROP-I INTERPRETATION NEGATIVE; TROPONIN-I 0.02 ng/mL (0.0-0.30)
[2017-05-24 00:06] VITALS: BP 132/59
[2017-05-24 03:06] LABS: TROP-I INTERPRETATION NEGATIVE; TROPONIN-I 0.01 ng/mL (0.0-0.30)
[2017-05-24 04:02] VITALS: BP 106/56
[2017-05-24 05:26] LABS: CHLORIDE 110 mEq/L (99-109); POTASSIUM 5.2 mEq/L (3.7-5.4); SODIUM 142 mEq/L (136-147)
[2017-05-24 05:28] LABS: GLUCOSE 107 mg/dL (70-99)
[2017-05-24 05:32] LABS: CREATININE 1.4 mg/dL (0.6-1.3); GFR ESTIMATE (CALCULATED) 40 mL/min/
[2017-05-24 05:33] LABS: UREA NITROGEN (BUN) 27 mg/dL (9-23)
[2017-05-24 09:27] VITALS: BP 157/76
[2017-05-24 11:16] VITALS: BP 136/64
[2017-05-24] MEDS ORDERED: XYLOCAINE VISC100 ML PO (13:07)
[2017-05-24 14:30] LABS: APPEARANCE CLEAR ((CLEAR)); BILIRUBIN NEGATIVE; BLOOD NEGATIVE; COLOR COLORLESS ((YELLOW)); GLUCOSE (STRIP) NEGATIVE; KETONES NEGATIVE; LEUKOCYTES NEGATIVE; NITRITE NEGATIVE; PROTEIN (STRIP) NEGATIVE; SPECIFIC GRAVITY 1.005 (1.000-1.030); UCUL ADDED? NO; UROBILINOGEN 0.2 MG/DL (0.2-1.0)
== END 2017-05-24 15:24 | disposition home or self-care (01) ==
LOC: EME 12:50 → EDOF 15:59 → ENRESERV 16:02 → 5WEST 19:57
PROVIDERS: Emergency Medicine; Internal Medicine
DX: I95.1 Orthostatic hypotension (principal); E86.0 Dehydration; K12.1 Other forms of stomatitis; N17.9 Acute kidney failure, unspecified; C34.90 Malignant neoplasm of unspecified part of unspecified bronchus or lung; Z92.21 Personal history of antineoplastic chemotherapy; F17.200 Nicotine dependence, unspecified, uncomplicated; Z90.49 Acquired absence of other specified parts of digestive tract; Z90.710 Acquired absence of both cervix and uterus; J44.9 Chronic obstructive pulmonary disease, unspecified; F31.9 Bipolar disorder, unspecified
CPT/HCPCS: 70450; 71046; 80048; 81003; 84484; 85027; 87641; 93005; G0378; J1644; J3010; J7030; J7120

== ENCOUNTER 2017-07-01 12:48 | Emergency (ER) | payer OTHER ==
[~2017-07-01] VITALS: Ht 152.4 cm; Wt 45.3 kg
[~2017-07-01 12:48] MED LIST changes: +CENTRUM SILVER1 EAC4 PO; +COMPAZINE10 MG PO; +GABAPENTIN100 MG PO; +XYLOCAINE VISC100 ML PO
[2017-07-01 15:45] VITALS: BP 121/63
== END 2017-07-01 16:07 | disposition home or self-care (01) ==
LOC: EME 12:48
DX: S80.02XA Contusion of left knee, initial encounter (principal); V49.40XA Driver injured in collision with unspecified motor vehicles in traffic accident, initial encounter; Y92.410 Unspecified street and highway as the place of occurrence of the external cause; K21.9 Gastro-esophageal reflux disease without esophagitis; I25.2 Old myocardial infarction; F32.9 Major depressive disorder, single episode, unspecified; K58.9 Irritable bowel syndrome, unspecified; M81.0 Age-related osteoporosis without current pathological fracture; F17.200 Nicotine dependence, unspecified, uncomplicated; Z85.118 Personal history of other malignant neoplasm of bronchus and lung; Z92.21 Personal history of antineoplastic chemotherapy; Z87.442 Personal history of urinary calculi; Z90.49 Acquired absence of other specified parts of digestive tract; Z88.6 Allergy status to analgesic agent; Z88.8 Allergy status to other drugs, medicaments and biological substances
CPT/HCPCS: 73564; 99281; 99284

== ENCOUNTER 2017-07-15 04:53 | Inpatient (IN) | payer OTHER ==
[~2017-07-15] VITALS: Ht 152.4 cm; Wt 45.8 kg
[2017-07-15 07:27] LABS: HEMATOCRIT 36.3 % (36.0-46.0); HEMOGLOBIN 12.4 G/DL (11.9-15.5); MCH 35.6 PG (29.0-34.0); MCHC 34.2 G/DL (30.0-36.0); MCV 104.3 FL (83-99); PLATELET COUNT 245 K/uL (156-360); RBC DIS.WIDTH-CV 13.4 % (11.8-14.6); RBC DIS.WIDTH-SD 51.4 % (39-53); RED BLOOD COUNT 3.48 M/uL (3.80-5.20); WHITE BLOOD COUNT 8.6 K/uL (4.1-10.2)
[2017-07-15 07:53] LABS: TROP-I INTERPRETATION NEGATIVE; TROPONIN-I 0.02 ng/mL (0.0-0.30)
[2017-07-15 07:59] LABS: CHLORIDE 106 MEQ/L (99-109); CREATININE 1.6 MG/DL (0.6-1.3); GFR ESTIMATE (CALCULATED) 34 mL/min/; GLUCOSE 128 mg/dL (70-99); POTASSIUM 4.1 MEQ/L (3.7-5.4); SODIUM 140 MEQ/L (136-147); UREA NITROGEN (BUN) 33 mg/dL (9-23)
[2017-07-15 12:15] LABS: APPEARANCE CLEAR ((CLEAR)); BILIRUBIN NEGATIVE; BLOOD NEGATIVE; COLOR YELLOW ((YELLOW)); GLUCOSE (STRIP) NEGATIVE; KETONES NEGATIVE; LEUKOCYTES SMALL; NITRITE NEGATIVE; PROTEIN (STRIP) NEGATIVE; SPECIFIC GRAVITY 1.023 (1.000-1.030); UROBILINOGEN 0.2 MG/DL (0.2-1.0)
[2017-07-15 12:27] LABS: BACTERIA RARE /HPF; EPITHELIAL CELLS NONE SEEN /HPF; HYALINE CASTS 0-5 /LPF; MUCUS TRACE /LPF; RED BLOOD CELLS 0-5 /HPF (0-5); UCUL ADDED? YES; WHITE BLOOD CELLS 30-40 /HPF (0-5)
[2017-07-15] MEDS ORDERED: OXYCODONE HCL5 MG PO (14:17)
[2017-07-15] MEDS ORDERED: METOPROLOL SUC200 MG PO (14:17)
[2017-07-15] MEDS ORDERED: FLONASE16 G1 BOTH NARES (14:17)
[2017-07-15] MEDS ORDERED: PLAVIX75 MG PO (14:17)
[2017-07-15] MEDS ORDERED: ZOLOFT50 MG PO (14:18)
[2017-07-15 17:27] VITALS: BP 100/62
[2017-07-15 19:45] VITALS: BP 155/68
[2017-07-16] VITALS (7 sets, daily range): BP systolic 100–176; BP diastolic 53–86
[2017-07-16] MEDS ORDERED: METOPROLOL SUCC25 MG PO (12:08)
[2017-07-17 03:25] VITALS: BP 139/65
[2017-07-17 08:16] VITALS: BP 136/63
[2017-07-17 08:50] LABS: BASOPHIL (%) 0.5 % (0-1); BASOPHIL COUNT 0.1 K/uL (0-0.1); EOSINOPHIL (%) 0.7 % (0-5); EOSINOPHIL COUNT 0.1 K/uL (0-0.3); HEMATOCRIT 35.6 % (36.0-46.0); HEMOGLOBIN 11.4 G/DL (11.9-15.5); IMMATURE GRANULOCYTE (%) 0.5 % (0.0-0.7); LYMPHOCYTE (%) 10.6 % (15-42); MCH 34.3 PG (29.0-34.0); MCV 107.2 FL (83-99); MONOCYTE COUNT 0.9 K/uL (0-0.8); NEUTROPHIL (%) 78.7 % (45-76); NEUTROPHIL COUNT 7.7 K/uL (1.8-6.4); PLATELET COUNT 266 K/uL (156-360); RBC DIS.WIDTH-CV 13.3 % (11.8-14.6); RED BLOOD COUNT 3.32 M/uL (3.80-5.20); WHITE BLOOD COUNT 9.8 K/uL (4.1-10.2)
[2017-07-17 10:49] LABS: ALBUMIN 3.7 G/DL (3.2-4.8); ALKALINE PHOSPHATASE 65 IU/L (3-129); ALT (GPT) 14 IU/L (3-49); AST (GOT) 18 IU/L (2-34); CHLORIDE 112 MEQ/L (99-109); CREATININE 1.1 MG/DL (0.6-1.3); GFR ESTIMATE (CALCULATED) 52 mL/min/; GLUCOSE 103 mg/dL (70-99); LIPASE 47 U/L (1.0-51.0); POTASSIUM 4.4 MEQ/L (3.7-5.4); SODIUM 141 MEQ/L (136-147); TOTAL BILIRUBIN 0.2 MG/DL (0.0-1.0); TOTAL PROTEIN 6.5 G/DL (6.4-8.3); UREA NITROGEN (BUN) 26 mg/dL (9-23)
== END 2017-07-17 15:34 | disposition home health service (06) | DRG 308 ==
LOC: EME → EDBD 04:53 → 5SOUTH 15:06 → EDOF 15:06 → ENRESERV 15:10 → 5SOUTH 16:42
PROVIDERS: Nurse Practitioner Family; Physician Assistant
DX: R00.1 Bradycardia, unspecified (principal); J96.21 Acute and chronic respiratory failure with hypoxia; Z99.81 Dependence on supplemental oxygen; M79.661 Pain in right lower leg; M79.672 Pain in left foot; R53.1 Weakness; I10 Essential (primary) hypertension; J44.9 Chronic obstructive pulmonary disease, unspecified; I25.10 Atherosclerotic heart disease of native coronary artery without angina pectoris; F31.9 Bipolar disorder, unspecified; F41.9 Anxiety disorder, unspecified; R29.6 Repeated falls; F17.210 Nicotine dependence, cigarettes, uncomplicated; I25.2 Old myocardial infarction; Z86.73 Personal history of transient ischemic attack (TIA), and cerebral infarction without residual deficits; Z91.19 Patient's noncompliance with other medical treatment and regimen; Z85.118 Personal history of other malignant neoplasm of bronchus and lung; Z92.21 Personal history of antineoplastic chemotherapy; Z91.81 History of falling; Z79.02 Long term (current) use of antithrombotics/antiplatelets
CPT/HCPCS: 70450; 71045; 73564; 73630; 74022; 80048; 80076; 81003; 83690; 84484; 85025; 85027; 87086; 93005; 93971; 94640; 94640 76; 94799; 99202; 99281; 99285; G8978 GP CM; G8979 GP CK; G8987 GO CM; G8988 GO CK; J0780; J1644; J1885; J2405; J7030; J7512